=== PATIENT | male | born 1955 | race African-American/Black ===

== ENCOUNTER 2016-10-09 05:50 | Inpatient (IN) | payer OTHER ==
[~2016-10-09] VITALS: Ht 185.4 cm; Wt 113.4 kg
--- NOTE | ~2016-10-09 | EKG ---
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 : 1955 Requested By: Tadeo Richard Order Number: [id number] MD: Kolton Dobbins Measurements Intervals [place] Rate: 66 P: 45 [place]: 204 QRS: -5 QRSD: 93 T: 38 QT: 415 QTc: 435 Interpretive Statements Sinus rhythm Probable left atrial enlargement Nonspecific ST and T wave abnormality No previous ECG available for comparison Electronically Signed On 10-09-2016 9:27:37 CDT by Kolton Dobbins [email or web address] <ELECTRONICALLY SIGNED> By: Kolton Dobbins MD, [facility] 10/09/16 0927 0633 2 Kolton Dobbins MD, FACC /EPI
--- NOTE | ~2016-10-09 | HC ---
[facility] [place] [address] CONSULTATION Name: LIBERTAD COTA Room #: 406-P [facility] IN .R.#: [id number] Admission: 10/09/16 Attend Phys: Riky Calix MD Discharge: Date of : 55 Report #: [id number] THIS REPORT FOR: //name// CC: KYREE physician/PCP Riky Calix DATE OF SERVICE: 10/10/2016 CHIEF COMPLAINT: Abdominal pain. HISTORY OF PRESENT ILLNESS: The patient is a very pleasant 61-year-old -Dominican male with history of diffuse abdominal pain, especially on the right side that has been present for at least 1 month. He has extremely complex past medical history and a great deal with it is unknown as his medical records are not presently available. He has known history of poorly controlled diabetes mellitus with a reported A1c greater than 9. 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 He has history of multiple myeloma and presently is undergoing chemotherapy for this via a right-sided port. These treatments are performed weekly at the [facility] in [place]. Unfortunately, his list of medications is not available and the patient and are unsure, which type of chemotherapy he is utilizing and which medications he is on except for Lantus and Lyrica, which are reported by the . According to his history and physical exam, he is on Zofran and aspirin. Certainly, he is on more medication than this and the states that he is on likely greater than 20 different medications. ALLERGIES: INCLUDES SULFA. 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 PAST SURGICAL HISTORY: Positive for tonsillectomy and pituitary tumor resection x 2. No prior abdominal operations. Specifically, regarding his abdominal pain, this seems to be more associated in the right mid abdomen and is cyclic occuring approximately every 10-20 minutes, this does seem to be worsened after taking an heavy meal. No recent fevers, chills, chest pain, shortness of breath. The patient reports daily bowel movements, which are moderately formed. No history of recent diarrhea or melena and no history of constipation, he is passing flatus without problem. SOCIAL HISTORY: Positive for tobacco use and THC use. The patient smokes every day approximately one half pack per day. 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 REVIEW OF SYSTEMS: CONSTITUTIONAL: Negative for fevers, chills or unwanted [facility] [address] [place] [address] CONSULTATION Name: LIBERTAD COTA Room #: 406-P [facility] IN ..#: [id number] Admission: 10/09/16 Attend Phys: Riky Calix MD Discharge: Date of : 55 Report #: [id number] weight loss. OCULAR: The patient is blind from prior pituitary tumor resection. HEENT: No dysphagia or odynophagia. No voice changes. PULMONARY: No productive cough, no shortness of breath. CARDIOVASCULAR: No chest pain or palpitation. GASTROINTESTINAL: Positive for abdominal pain, nausea and emesis. Negative for diarrhea or melena. Last colonoscopy was apparently 3 years ago, which he said that he was cleared for 10 years following that. GENITOURINARY: No dysuria or hematuria. MUSCULOSKELETAL: No back pain or joint swelling. CUTANEOUS: No skin lesions or rashes. NEUROLOGIC: Positive for blindness from prior pituitary tumor resection on some type of hormone replacement therapy for that. The patient has severe peripheral neuropathy from longstanding diabetes. He does take Lyrica as reported on no other medications for this. PSYCHIATRIC: No depression or anxiety. ENDOCRINE: Poorly controlled diabetes mellitus with most recent A1c, patient reporting as greater than 9. PHYSICAL EXAMINATION: GENERAL: On exam, the patient is awake and alert. He is uncomfortable. He does give some appropriate history, although he is not sure of many of the detail. Normal mood and affect. HEENT: He is fluent of speech. He is blind. Head is atraumatic and normocephalic. Oral cavity is clear. No icterus is appreciated. LUNGS: Clear to auscultation. No respiratory distress. HEART: Regular, without murmur. ABDOMEN: Obese, nondistended. He is tender to palpation diffusely. No obvious Tapia's or Roving's sign. SKIN: Is intact without focal lesions. No abdominal surgical scars. No obvious hernia or mass lesion. EXTREMITIES: Without clubbing, cyanosis or edema. Radiographic studies are reviewed. CT scan of the abdomen and pelvis without contrast obtained yesterday shows diffuse fatty infiltration of the liver, gallbladder enlarged at 9.5 x 5.2, the wall is thickened up to 7.5 mm. No obvious stones. There is some fluid adjacent to the gallbladder. No intrahepatic or extrahepatic bile duct enlargement. Aorta noted to have ectasia up to 2.7 cm, IVC normal. No obvious lymphadenopathy, no obvious obstruction, no sign of appendicitis, no free fluid or free air, small umbilical hernia noted. Ultrasound of the abdomen reviewed. This shows diffuse liver enlargement measuring up to 21 cm with diffuse echogenicity indicating fatty liver. Common bile duct up to 6.5 mm, gallbladder wall thickening noted, some pericholecystic fluid noted. No obvious cholelithiasis noted. IMPRESSION AND PLAN: 61-year-old male patient with possible acute acalculous cholecystitis, although atypical presentation with symptoms having been ongoing for at least the past month. No leukocytosis or left shift on 2 separate complete blood counts with most recent white blood cell count being 7.6 this morning with 63% segmental neutrophils, poorly controlled diabetes mellitus with reported A1c of greater than 9, multiple myeloma with ongoing chemotherapy on a weekly basis via a port in the right upper chest, [place] [address] CONSULTATION Name: LIBERTAD COTA Room #: 406-P ADM IN [facility].#: [id number] Admission: 10/09/16 Attend Phys: Riky Calix MD Discharge: Date of : 55 Report #: [id number] internal jugular [employer]. Unknown medication regimen at this time. No sign of sepsis or septic shock, although the patient is uncomfortable. It is unclear if this is simply from acalculous cholecystitis or some other process. Stool noted within proximal transverse colon on CT abdomen and pelvis. PLAN: 1. Will obtain PIPIDA scan to better evaluate the hepatobiliary tree. 2. Will hold on plan for cholecystectomy based upon this new information that was discovered this morning. 3. Attempt to obtain patient's records from the [facility] in [facility]; apparently he follows with Dr. Pineda. 4. Discuss with Dr. Riky Calix his admitting physician regarding clarifying his medical status as well as clarification with Oncology regarding possible surgical intervention should the PIPIDA show similar findings to the CT scan and ultrasound. Consultation appreciated. Will continue to follow closely and make further recommendations based upon clinical status and other diagnostic findings. Greater than 1 hour utilized reviewing the patient's records, reviewing his radiographic findings, laboratory studies, and discussing with various members of the medical team. <ELECTRONICALLY SIGNED> By: Dickson Jordan MD 10/11/16 0917 0836 2112 Dickson Jordan MD /nt
[~2016-10-09 05:50] MED LIST: AMOXICILLIN875 MG PO; ASPIR 8181 MG PO; ONDANSETRON HCL4 M2 PO
[2016-10-09 06:25] VITALS: BP 194/102
[2016-10-09 06:32] LABS: ABSOLUTE NEUTROPHILS 6.6 thou/uL (1.4-8.2); BASOPHILS 0.4 % (0.0-2.0); EOSINOPHILS 0.8 % (0.0-3.0); HEMATOCRIT 53.7 % (42.0-52.0); HEMOGLOBIN 18.6 gm/dL (14.0-18.0); MCH 31.2 pg (26.0-34.0); MCHC 34.6 g/dL (28.0-37.0); MCV 90.4 fL (80.0-100.0); MONOCYTES 9.4 % (1.0-8.0); PLATELET COUNT 203 thou/uL (150-400); POLYS 61.4 % (36.0-66.0); RBC 5.94 mil/uL (4.50-6.00); RDW 13.8 % (10.5-14.5); WBC 10.8 thou/uL (4.0-11.0)
[2016-10-09 06:35] LABS: MANUAL DIFF NO
[2016-10-09 06:36] LABS: ANION GAP 11 mmol/L (7-16); BUN 13 mg/dL (7-18); CALCIUM 8.6 mg/dL (8.5-10.1); CHLORIDE 103 mmol/L (98-107); CO2 27 mmol/L (21-32); CREATININE 1.1 mg/dL (0.7-1.3); GLUCOSE 244 mg/dL (74-106); POTASSIUM 3.8 mmol/L (3.5-5.1); SODIUM 141 mmol/L (136-145)
[2016-10-09 06:46] LABS: ALBUMIN 3.5 g/dL (3.4-5.0); ALKALINE PHOSPHATASE 72 U/L (46-116); SGOT 20 U/L (15-37); SGPT 35 U/L (30-65); TOTAL BILIRUBIN 0.4 mg/dL (<0.1-1.0); TOTAL PROTEIN 6.7 g/dL (6.4-8.2); TROPONIN-I < 0.04 ng/mL (<0.04-0.07)
[2016-10-09 07:29] LABS: URINE BILIRUBIN NEGATIVE (Negative); URINE BLOOD NEGATIVE (Negative); URINE COLOR YELLOW; URINE GLUCOSE-RANDOM* 1+ (Negative); URINE KETONES NEGATIVE (Negative); URINE LEUKOCYTES-REFLEX NEGATIVE (Negative); URINE PROTEIN (DIPSTICK) NEGATIVE (Negative); URINE UROBILINOGEN 0.2 E.U./dl (0.2-1.0)
[2016-10-09 10:02] VITALS: BP 141/82
[2016-10-09 11:15] VITALS: BP 140/97
[2016-10-09 16:00] VITALS: BP 134/78
[2016-10-09 18:35] VITALS: BP 134/86
[2016-10-09 22:57] VITALS: BP 135/78
[2016-10-10 03:28] VITALS: BP 159/114
[2016-10-10 05:37] LABS: ABSOLUTE NEUTROPHILS 4.8 thou/uL (1.4-8.2); BASOPHILS 0.2 % (0.0-2.0); HEMATOCRIT 53.3 % (42.0-52.0); HEMOGLOBIN 18.1 gm/dL (14.0-18.0); LYMPHOCYTES 26.4 % (24.0-44.0); MCH 30.9 pg (26.0-34.0); MCV 90.8 fL (80.0-100.0); PLATELET COUNT 169 thou/uL (150-400); POLYS 63.4 % (36.0-66.0); RBC 5.88 mil/uL (4.50-6.00); RDW 13.9 % (10.5-14.5); WBC 7.6 thou/uL (4.0-11.0)
[2016-10-10 05:44] LABS: MANUAL DIFF NO
[2016-10-10 06:09] LABS: ALBUMIN 3.2 g/dL (3.4-5.0); CALCIUM 8.1 mg/dL (8.5-10.1); MAGNESIUM 1.5 mg/dL (1.8-2.4); POTASSIUM 3.8 mmol/L (3.5-5.1); TOTAL BILIRUBIN 0.7 mg/dL (<0.1-1.0); TOTAL PROTEIN 6.1 g/dL (6.4-8.2)
[2016-10-10 06:55] VITALS: BP 141/84
[2016-10-10] MEDS ORDERED: LANTUS SOL100 UNIT/1 SUBQ (07:04)
[2016-10-10 08:30] VITALS: BP 135/82
[2016-10-10 13:00] VITALS: BP 129/84
[2016-10-10] MEDS ORDERED: AMITRIPTYLINE H10 M1 PO (18:26)
[2016-10-10] MEDS ORDERED: NORVASC10 MG PO (18:27)
[2016-10-10] MEDS ORDERED: CELEXA20 MG PO (18:28)
[2016-10-10] MEDS ORDERED: ASPIR-TRIN325 MG PO (18:28)
[2016-10-10] MEDS ORDERED: ERGOCALCIF50000 UNIT PO (18:29)
[2016-10-10] MEDS ORDERED: DIFLUCAN200 MG PO (18:30)
[2016-10-10] MEDS ORDERED: FISH OIL 1,001000 M2 PO (18:30)
[2016-10-10] MEDS ORDERED: FLORINEF ACETA0.1 MG PO (18:31)
[2016-10-10] MEDS ORDERED: CORTEF10 MG PO (18:33)
[2016-10-10] MEDS ORDERED: HYDROCORTISONE10 MG PO (18:34)
[2016-10-10] MEDS ORDERED: LEVOTHYROXINE 0.15MG PO (18:36)
[2016-10-10] MEDS ORDERED: NOVOLOG FL100 UNIT/M SUBQ (18:36)
[2016-10-10] MEDS ORDERED: PRINIVIL10 MG PO (18:37)
[2016-10-10] MEDS ORDERED: MORPHINE SULFAT15 M3 PO (18:39)
[2016-10-10] MEDS ORDERED: UNICOMPLEX M TA1 TA1 PO (18:39)
[2016-10-10] MEDS ORDERED: PRAVASTATIN SOD10 MG PO (18:40)
[2016-10-10] MEDS ORDERED: PENICILLIN VK500 MG PO (18:40)
[2016-10-10] MEDS ORDERED: LYRICA 50 MG50 MG PO (18:41)
[2016-10-10] MEDS ORDERED: ZANTAC 150MG T150 MG PO (18:41)
[2016-10-10] MEDS ORDERED: SENNA8.6 MG PO (18:42)
[2016-10-10] MEDS ORDERED: VIAGRA100 MG PO (18:43)
[2016-10-10] MEDS ORDERED: VALACYCLOVIR500 MG PO (18:46)
[2016-10-10] MEDS ORDERED: KYPROLIS30 MG IV (19:11)
[2016-10-10 19:22] VITALS: BP 136/89
[2016-10-10] MEDS ORDERED: ANDROGEL5 GM TD (19:31)
[2016-10-11 03:32] VITALS: BP 147/84
[2016-10-11 09:42] LABS: ABSOLUTE NEUTROPHILS 5.1 thou/uL (1.4-8.2); BASOPHILS 1.3 % (0.0-2.0); EOSINOPHILS 0.9 % (0.0-3.0); HEMATOCRIT 53.9 % (42.0-52.0); HEMOGLOBIN 18.8 gm/dL (14.0-18.0); LYMPHOCYTES 23.3 % (24.0-44.0); MCH 31.3 pg (26.0-34.0); MCHC 34.8 g/dL (28.0-37.0); MCV 89.8 fL (80.0-100.0); MONOCYTES 10.5 % (1.0-8.0); PLATELET COUNT 186 thou/uL (150-400); RDW 13.9 % (10.5-14.5)
[2016-10-11 09:44] LABS: MANUAL DIFF NO
[2016-10-11 09:50] LABS: CALCIUM 8.7 mg/dL (8.5-10.1); POTASSIUM 3.6 mmol/L (3.5-5.1)
[2016-10-11 12:56] VITALS: BP 147/84
== END 2016-10-11 13:49 | disposition home or self-care (01) | DRG 392 ==
LOC: ER 05:50 → EROBS 09:18 → 4N 09:18
PROVIDERS: Emergency Medicine; Hospitalist; Nurse Practitioner
DX: K52.9 Noninfective gastroenteritis and colitis, unspecified (principal); I16.1 Hypertensive emergency; C90.00 Multiple myeloma not having achieved remission; I10 Essential (primary) hypertension; H54.0 Blindness, both eyes; E86.0 Dehydration; G89.29 Other chronic pain; F17.210 Nicotine dependence, cigarettes, uncomplicated; E11.65 Type 2 diabetes mellitus with hyperglycemia; E11.42 Type 2 diabetes mellitus with diabetic polyneuropathy; Z79.82 Long term (current) use of aspirin; Z79.899 Other long term (current) drug therapy; Z88.2 Allergy status to sulfonamides; Z87.891 Personal history of nicotine dependence; Z90.49 Acquired absence of other specified parts of digestive tract; Z85.9 Personal history of malignant neoplasm, unspecified
CPT/HCPCS: 10091

== ENCOUNTER 2019-09-30 10:11 | Emergency (ER) | payer OTHER ==
[~2019-09-30] VITALS: Ht 185.4 cm; Wt 106.6 kg
[~2019-09-30 10:11] MED LIST changes: +AMITRIPTYLINE H10 M1 PO; +ANDROGEL5 GM TD; +ASPIR-TRIN325 MG PO; +CELEXA20 MG PO; +CORTEF10 MG PO; +DIFLUCAN200 MG PO; +ERGOCALCIF50000 UNIT PO; +FISH OIL 1,001000 M2 PO; +FLORINEF ACETA0.1 MG PO; +HYDROCORTISONE10 MG PO; +KYPROLIS30 MG IV; +LANTUS SOL100 UNIT/1 SUBQ; +LEVOTHYROXINE 0.15MG PO; +LYRICA 50 MG50 MG PO; +MORPHINE SULFAT15 M3 PO; +NORVASC10 MG PO; +NOVOLOG FL100 UNIT/M SUBQ; +PENICILLIN VK500 MG PO; +PRAVASTATIN SOD10 MG PO; +PRINIVIL10 MG PO; +SENNA8.6 MG PO; +UNICOMPLEX M TA1 TA1 PO; +VALACYCLOVIR500 MG PO; +VIAGRA100 MG PO; +ZANTAC 150MG T150 MG PO
[2019-09-30 11:31] LABS: HEMATOCRIT 49.1 % (42.0-52.0); HEMOGLOBIN 16.7 gm/dL (14.0-18.0); MCH 29.9 pg (26.0-34.0); MCHC 34.1 g/dL (28.0-37.0); MCV 87.7 fL (80.0-100.0); RBC 5.59 mil/uL (4.50-6.00); RDW 14.9 % (10.5-14.5); WBC 6.2 thou/uL (4.0-11.0)
[2019-09-30 11:40] LABS: ANION GAP 9 mmol/L (7-16); BUN 8 mg/dL (7-18); CHLORIDE 101 mmol/L (98-107); CO2 26 mmol/L (21-32); GLUCOSE 155 mg/dL (74-106); SODIUM 136 mmol/L (136-145)
[2019-09-30 11:48] LABS: TROPONIN-I <0.06 ng/mL (<0.06)
[2019-09-30] MEDS ORDERED: POTASSIUM20 PO (12:12)
[2019-09-30 12:23] VITALS: BP 153/96
[2019-09-30 12:25] LABS: ABSOLUTE NEUTROPHILS 2.5 thou/uL (1.4-8.2); METAMYELOCYTES 1 %
[2019-09-30 12:27] LABS: ANISOCYTOSIS 1+
[2019-09-30 12:28] LABS: PLATELET COUNT 127 thou/uL (150-400)
--- NOTE | 2019-09-30 15:54 | EKG ---
[facility] [place] [address] ELECTROCARDIOGRAM REPORT Name: LIBERTAD COTA [id number] Admission: 09/30/19 Attend Phys: Discharge: 09/30/19 Date of : 55 Report #: [id number] THIS REPORT FOR: cc: KYREE - No family physician/PCP FAM - No family physician/PCP Ronald Hidalgo MD ~ THIS REPORT FOR: //name// [facility] ED Test Date: 2019-09-30 Test Time: 10:26:11 Pat Name: LIBERTAD COTA Department: Room: Gender: Protective Services Case Worker: DANIEL : 1955 Requested By: José Cutler Order Number: [id number] : Ronald Hidalgo Measurements Intervals [place] Rate: 75 P: 49 NM: 215 QRS: -3 QRSD: 97 T: 61 QT: 419 QTc: 468 Interpretive Statements Sinus rhythm Borderline prolonged NM interval Probable left atrial enlargement Abnormal R-wave progression, early transition Baseline wander in lead(s) V1 Compared to ECG 10/09/2016 06:33:04 ST (T wave) deviation no longer present Electronically Signed On 09-30-2019 15:52:57 CDT by Ronald Hidalgo [email or web address] <ELECTRONICALLY SIGNED> By: Ronald Hidalgo MD 09/30/19 1552 1026 1026 Ronald Hidalgo MD /EPI
== END 2019-09-30 13:00 | disposition home or self-care (01) ==
LOC: ER 10:11
PROVIDERS: Emergency Medicine
DX: E87.6 Hypokalemia (principal); I10 Essential (primary) hypertension; G62.9 Polyneuropathy, unspecified; Z90.49 Acquired absence of other specified parts of digestive tract; Z87.891 Personal history of nicotine dependence; Z88.2 Allergy status to sulfonamides

== ENCOUNTER 2020-10-13 19:47 | Emergency (ER) | payer OTHER ==
[~2020-10-13] VITALS: Ht 185.4 cm; Wt 104.3 kg
[~2020-10-13 19:47] MED LIST changes: +POTASSIUM20 PO
[2020-10-13 20:27] LABS: ABSOLUTE NEUTROPHILS 3.9 thou/uL (1.4-8.2); BASOPHILS 0.6 % (0.0-2.0); EOSINOPHILS 2.9 % (0.0-3.0); HEMATOCRIT 52.3 % (42.0-52.0); HEMOGLOBIN 17.7 gm/dL (14.0-18.0); LYMPHOCYTES 24.3 % (24.0-44.0); MCHC 33.8 g/dL (28.0-37.0); MCV 94.7 fL (80.0-100.0); MONOCYTES 11.9 % (1.0-8.0); PLATELET COUNT 124 thou/uL (150-400); POLYS 60.3 % (36.0-66.0); RBC 5.52 mil/uL (4.50-6.00); RDW 14.6 % (10.5-14.5); WBC 6.5 thou/uL (4.0-11.0)
[2020-10-13 20:30] LABS: ANION GAP 12 mmol/L (7-16); BUN 16 mg/dL (7-18); CALCIUM 8.9 mg/dL (8.5-10.1); CHLORIDE 102 mmol/L (98-107); CO2 27 mmol/L (21-32); CREATININE 1.4 mg/dL (0.7-1.3); GLUCOSE 179 mg/dL (74-106); POTASSIUM 3.9 mmol/L (3.5-5.1); SODIUM 141 mmol/L (136-145)
[2020-10-13 20:41] LABS: ALBUMIN 3.6 g/dL (3.4-5.0); AMYLASE 207 U/L (25-115); DIRECT BILIRUBIN 0.1 mg/dL (<0.1-0.2); LIPASE 179 U/L (73-393); MAGNESIUM 1.4 mg/dL (1.8-2.4); PHOSPHORUS 2.8 mg/dL (2.6-4.7); SGOT 23 U/L (15-37); SGPT 34 U/L (16-63); TOTAL BILIRUBIN 0.7 mg/dL (0.2-1.0); TROPONIN-I <0.06 ng/mL (<0.06)
[2020-10-14 00:34] LABS: URINE BILIRUBIN NEGATIVE (Negative); URINE BLOOD NEGATIVE (Negative); URINE CLARITY CLEAR; URINE COLOR YELLOW; URINE GLUCOSE-RANDOM* NEGATIVE (Negative); URINE KETONES TRACE (Negative); URINE LEUKOCYTES-REFLEX NEGATIVE (Negative); URINE NITRITE-REFLEX NEGATIVE (Negative); URINE PROTEIN (DIPSTICK) TRACE (Negative); URINE SPECIFIC GRAVITY 1.025 (1.005-1.035); URINE UROBILINOGEN 0.2 E.U./dl (0.2-1.0)
[2020-10-14 01:06] VITALS: BP 124/68
--- NOTE | 2020-10-14 07:10 | EKG ---
[place] [address] [facility] [facility] [email or web address] [address] ELECTROCARDIOGRAM REPORT Name: LIBERTAD COTA Room #: [facility]#: [id number] Admission: 10/13/20 Attend Phys: Discharge: 10/14/20 Date of : 55 Report #: [id number] [facility] ED Test Date: 2020-10-13 Test Time: 20:19:35 Pat Name: LIBERTAD COTA Department: Room: Gender: M Spinning Room Worker: chang : 1955 Requested By: Vince Morrissey Order Number: [id number] MD: Vito Naranjo Measurements Intervals [place] Rate: 80 P: 52 [place]: 191 QRS: 26 QRSD: 90 T: 83 QT: 419 QTc: 484 Interpretive Statements Sinus rhythm Probable left atrial enlargement Minimal ST elevation, anterior leads Borderline prolonged QT interval Compared to ECG 09/30/2019 10:26:11 ST (T wave) deviation now present Electronically Signed On 10-14-2020 7:10:15 CDT by Vito Naranjo [email or web address] <ELECTRONICALLY SIGNED> By: Vito Naranjo MD, [facility] 10/14/20 0710 18 18 Vito Naranjo MD, FACC /EPI
== END 2020-10-14 01:07 | disposition short-term general hospital (02) ==
LOC: ER 19:47
PROVIDERS: Emergency Medicine
DX: S00.31XA Abrasion of nose, initial encounter (principal); C90.00 Multiple myeloma not having achieved remission; R55 Syncope and collapse; E23.6 Other disorders of pituitary gland; R10.32 Left lower quadrant pain; Z87.891 Personal history of nicotine dependence; Z79.899 Other long term (current) drug therapy; Z88.2 Allergy status to sulfonamides; Z79.82 Long term (current) use of aspirin; Z90.89 Acquired absence of other organs; W01.198A Fall on same level from slipping, tripping and stumbling with subsequent striking against other object, initial encounter; Y93.89 Activity, other specified; Y92.89 Other specified places as the place of occurrence of the external cause; Y99.9 Unspecified external cause status